=== PATIENT | female | born 1945 | race Caucasian/White ===

== ENCOUNTER 2017-02-03 22:10 | Emergency (ER) | payer MEDICARE ==
[2017-02-03] MEDS ORDERED: methylPREDNISolone Sod Succ/PF 125 MG/2 ML VIAL ONE (22:50)
[2017-02-03 23:08] LABS: #Basophils 0.1 thou/uL (0.0-0.2); #Eosinphils 1.8 thou/uL (0.0-0.7); #Lymphocytes 1.4 thou/uL (1.20-3.40); #Monocytes 0.7 thou/uL (0.11-0.59); #Neutrophils 5.2 thou/uL (1.40-6.50); %Basophils 0.6 % (0.0-1.0); %Eosinophils 19.7 % (0.0-10.0); %Monocytes 7.4 % (0.0-10.0); Acanthocytes SLIGHT = 1-5 cells (100X) (None Seen); Anisocytosis MODERATE=16-30 cells (100X) (0-5/hpf); Elliptocytes SLIGHT = 2-5 cells (100X) (0-1/hpf); Hematocrit 26.5 % (36.0-47.0); Mean Platelet Volume 9.2 fL (7.4-10.4); Red Blood Cell (RBC) Count 3.11 mill/uL (4.20-5.40); White Blood Cell (WBC) Count 9.1 thou/uL (4.8-10.8)
[2017-02-03 23:13] LABS: Troponin I 0.042 ng/mL (< 0.028)
--- NOTE | 2017-02-03 23:45 | RAD ---
PORTABLE AP CHEST X-RAY 02/03/2017 HISTORY: Intermittent shortness of breath that started earlier today. COMPARISON: None available. FINDINGS: Cardiac silhouette is magnified by projection. Pulmonary vasculature is within normal limits. Ther e is minimal patchy density in the right lung base which is thought to most likely be related to sup erior position of structures including vasculature. Lungs are otherwise clear. Dense vascular calc ifications are seen in the thoracic aorta with mild ectasia of the proximal descending thoracic aort a at the level of the aortic arch. IMPRESSION: 1. No acute cardiopulmonary process. 2. Dense vascular calcifications in the thoracic aorta with ectasia of the proximal descending thora cic aorta. POS: [facility]
[2017-02-04 00:47] LABS: Anion Gap 19 mmol/L (10-20); BUN (Urea Nitrogen) 33 mg/dL (9.8-20.1); Calc. Creatinine Clearance 0 mL/min (70-130); Calcium 9.8 mg/dL (7.8-10.44); Carbon Dioxide 18 mmol/L (23-31); Chloride 105 mmol/L (98-107); Estimated GFR-MDRD 24
[2017-02-04] MEDS ORDERED: Furosemide 40 MG/4 ML VIAL ONE (00:49)
== END 2017-02-04 01:07 | disposition home or self-care (01) ==
LOC: ERS 22:10
DX: J44.9 Chronic obstructive pulmonary disease, unspecified (principal); I11.0 Hypertensive heart disease with heart failure; I50.9 Heart failure, unspecified; I25.2 Old myocardial infarction; D64.9 Anemia, unspecified
CPT/HCPCS: 36415; 71010; 80048; 82553; 83880; 84484; 85025; 94640; 94660; 94760; 96374; 96375; J1940; J2930; J7620